=== PATIENT | male | born 1965 | race Caucasian/White ===

== ENCOUNTER 2018-01-01 06:25 | Day surgery (SDC) | payer BC ==
[~2018-01-01] VITALS: Ht 188 cm; Wt 116.1 kg
[~2018-01-01 06:25] MED LIST: LEVEMIR100 UNIT/1 SUB-Q; LIPITOR10 MG PO; LOSARTAN POTASS50 MG PO; METFORMIN HCL1000 MG PO; MULTI VITAMIN1 EACH PO; VENTOLIN HFA18 GM INH
[2018-01-01] MEDS ORDERED: JARDIANCE10 MG PO (06:43)
[2018-01-01] MEDS ORDERED: GLYBURIDE5 MG PO (06:43)
[2018-01-01] MEDS ORDERED: VITAMIN C250 M1 PO (06:44)
--- NOTE | 2018-01-01 08:03 | NUR ---
01/01/18 0803 Brittney Mckeon 8713-PATIENT ARRIVED TO PACU ON 3L NC WEANED TO 2L NC O2 SAT 96% PATIENT AWAKE DROWSY DENIES PAIN OR NAUSEA. RR EVEN. ABDOMEN SOFT. LAYING SUPINE. DOZES BACK TO SLEEP. HAS SLEEP APNEA USES CPAP AT HOME.
--- NOTE | 2018-01-01 12:28 | NUR ---
PT ALERT, ORIENTED ANE SUPPORTED BY HIS JAYDEN. HE IS PLEASANT, HAVING FIRST ROUTINE SCOPE. SEEMED PREPARED, REQUESTED PRAYER. WILL FOLLOW NEEDED
--- NOTE | 2018-01-02 08:11 | OR ---
[facility] [place] [facility] [address], [place] [address] Signed DATE OF OPERATION: 01/01/2018 SURGEON: Reddy Peterson MD COLONOSCOPY REPORT PREOPERATIVE DIAGNOSIS: Screening. POSTOPERATIVE DIAGNOSES: 1. 5 mm polyps in the cecum, mid right colon, 10 cm and 5 cm. 2. Moderate sigmoid diverticulosis. PROCEDURE PERFORMED: Colonoscopy with hot biopsy. ESTIMATED BLOOD LOSS: None. INDICATIONS: Sharan is a 52-year-old gentleman, asked to see me for screening colonoscopy. He said he has no lower GI complaints. There is no family history of colon cancer or polyps. In the office, I gave him a pamphlet on colonoscopy, we looked at that together along with the risks including, but not limited to gas bloating, crampy abdominal pain, bleeding, perforation, requiring surgery, and missed diagnosis. We also discussed the need for IV conscious sedation. He had expressed understanding and wished to proceed. PROCEDURE NOTE: Sharan was taken into our endoscopy suite and placed in the left lateral decubitus position. He was given IV sedation with 125 mcg of fentanyl and 6 mg of Versed. A digital rectal exam was performed and this showed a slightly enlarged and ddeu-kd-ypxbtkitpu indurated prostate gland. No dominant nodules. The adult colonoscope was then introduced and advanced all around into the cecum under direct visualization of the camera without difficulty. We used a little extra sedation and abdominal compression to move the scope into the cecum itself. He had just a little swelling in the right colon, but it was not bad. He has the above-mentioned polyps were removed with the help of hot biopsy forceps. The scope was then slowly withdrawn and we could see that he also has moderate sigmoid diverticulosis, they are moderate in size moderate in number, and scattered about. Once in the rectum, the scope had been retroflexed and there was no additional pathology noted above the anal canal. After Electronically Signed By: REDDY PETERSON MD 01/02/18 0811 PATIENT NAME: SHARAN SHELLEY OPERATIVE REPORT DATE OF : 67 REPORT #: [id number] PHYSICIAN: REDDY PETERSON MD PCP: CARLEE MAHER REPORT IS CONFIDENTIAL AND NOT TO BE RELEASED WITHOUT AUTHORIZATION [facility] [address] [place] [id number] Signed this, the gas was suctioned out and the colonoscope was removed. Sharan tolerated the procedure quite well. RECOMMENDATIONS: I will see Sharan back in my office in 7 to 14 days to review his results. MD JOSH Richmond/SIRISHAL /[id number] cc: NIKA BEJARANO Copies: ~ Electronically Signed By: REDDY PETERSON MD 01/02/18 0811 PATIENT NAME: SHARAN SHELLEY OPERATIVE REPORT DATE OF : 67 REPORT #: [id number] PHYSICIAN: REDDY PETERSON MD PCP: CARLEE MAHER REPORT IS CONFIDENTIAL AND NOT TO BE RELEASED WITHOUT AUTHORIZATION
== END 2018-01-01 08:35 | disposition home or self-care (01) ==
LOC: DS 06:25
PROVIDERS: Colon & Rectal Surgery
PROC: 0DBE8ZZ Excision of Large Intestine, Via Natural or Artificial Opening Endoscopic (ICD-10-PCS; 2018-01-01)
PROC: 0DBP8ZZ Excision of Rectum, Via Natural or Artificial Opening Endoscopic (ICD-10-PCS; 2018-01-01)
PROC: 0DBH8ZZ Excision of Cecum, Via Natural or Artificial Opening Endoscopic (ICD-10-PCS; 2018-01-01)
PROC: 0DBK8ZZ Excision of Ascending Colon, Via Natural or Artificial Opening Endoscopic (ICD-10-PCS; principal; 2018-01-01 06:45)
DX: Z12.11 Encounter for screening for malignant neoplasm of colon (principal); D12.0 Benign neoplasm of cecum; D12.2 Benign neoplasm of ascending colon; D12.8 Benign neoplasm of rectum; D12.6 Benign neoplasm of colon, unspecified; K57.30 Diverticulosis of large intestine without perforation or abscess without bleeding; E78.5 Hyperlipidemia, unspecified; I10 Essential (primary) hypertension; E11.9 Type 2 diabetes mellitus without complications; D69.6 Thrombocytopenia, unspecified; Z79.84 Long term (current) use of oral hypoglycemic drugs; Z79.899 Other long term (current) drug therapy
CPT/HCPCS: 99153; G0500; J2250; J3010; J7120

== ENCOUNTER 2020-04-21 07:50 | Day surgery (SDC) | payer BC ==
[~2020-04-21] VITALS: Ht 188 cm; Wt 113.6 kg
[~2020-04-21 07:50] MED LIST changes: +GLYBURIDE5 MG PO; +JARDIANCE10 MG PO; +OSTERA TABLET1 EACH PO; +VITAMIN C250 M1 PO; +ZINC30 MG PO
--- NOTE | 2020-04-21 12:35 | NUR ---
04/21/20 1235 Ernestina Almanza 1133 PT ARRIVED IN PACU WIDE AWAKE WITH NO C/O'S. BLOOD SUGAR 172 ON ARRIVAL. 1145 3 VIEW XRAY OF R FOOT DONE. AT BEDSIDE TALKING TO PT. 1200 DC INSTRUCTIONS GIVEN. ALL QUESTIONS ANSWERED. BOOT PLACED ON R FOOT. 1210 LEFT VIA W/C. RX GIVEN TO AT CAR.
--- NOTE | 2020-04-22 11:22 | OR ---
[facility] [address] [facility] [place] [place] [address] Signed DATE OF OPERATION: 04/21/2020 SURGEON: Esau Escoto DPM PREOPERATIVE DIAGNOSIS: Hallux valgus, right foot. POSTOPERATIVE DIAGNOSIS: Hallux valgus, right foot. INTERACTIVE ACCOUNT MANAGER SURGEON: Mildred Pittman DPM ANESTHESIA: IV general with local block, right foot. SOLAR INSTALLER TECHNICIAN: Rafa Lima. SPECIMEN TO PATHOLOGY: None. PROCEDURE PERFORMED: Right hallux IPJ fusion. PROCEDURE IN DETAIL: The patient was brought to the operating room and placed on the table in the supine position. Anesthesia Department administered IV sedation after which a local block was given to the right foot using a total of 10 mL 1:1 mixture 0.5% ropivacaine plain and 2% lidocaine plain. The right leg and foot was then prepped and draped in the usual sterile manner and an Esmarch was used for hemostasis. Attention was initially directed to the dorsal right hallux where a transverse linear incision was made over the interphalangeal joint. The incision was approximately 2 cm in length, initially full-thickness through the dermis, then deepened through subcutaneous tissue using careful dissection and cautery as necessary for hemostasis. A transverse tenotomy/capsulotomy was then made to open the interphalangeal joint and soft tissues reflected proximal and distal to fully expose the joint and access the joint to allow joint preparation for fusion. At this time, power instrumentation was used to resect the cartilaginous surfaces to both sides of the joint and to provide angular Electronically Signed By: ESAU ESCOTO DPM 04/22/20 1122 PATIENT NAME: ISADORA SHELLEY OPERATIVE REPORT DATE OF : 67 REPORT #: [id number] PHYSICIAN: ESAU ESCOTO DPM PCP: CARLEE CORTES PA-C REPORT IS CONFIDENTIAL AND NOT TO BE RELEASED WITHOUT AUTHORIZATION [facility] [address] [place], [place] [address] Signed correction for the hallux valgus position. With the alignment and the joint preparation performed, a K-wire was then passed from the joint through the distal phalanx exiting the end of the toe. The K-wire was then reversed and passed into the proximal phalanx to stabilize the position to the toe which was then checked on intraoperative C-arm images. The K-wire was then used for placement of a cannulated screw across the joint to secure the joint position. At this time, the position of the screw was again then checked with intraoperative C-arm images noting good placement to the screw and the osteotomy site was examined. There was good bony apposition to the dorsal aspect of the joint fusion. There was gapping noted to the plantar aspect, but this was deemed adequate. A 2nd point of fixation was then added using an 8 mm bone staple on the lateral side of the joint fusion. At this time, the surgical site was irrigated with copious amounts of normal saline. Soft tissues were then closed, reapproximating deep tissues and tendon using 3-0 Vicryl. Skin then closed using 4-0 nylon monofilament suture. Dressings then applied consisting of Adaptic, Betadine-soaked gauze, dry gauze, Flexicon, and Coban. Prior to placement of the dressings, a postoperative injection was given using 5 mL of a 9:1 mixture, 0.5% ropivacaine plain and dexamethasone phosphate 4 mg/mL. INTRAOPERATIVE COMPLICATIONS: None. ESTIMATED BLOOD LOSS: Less than 5 mL. The patient tolerated the procedure and anesthesia well and left the operating room with vital signs stable and vascular status intact to the right foot as evidenced by hyperemia with removal of the Esmarch. Esau Escoto DPM DFAisha/SIRISHAL /[id number] Electronically Signed By: EASU ESCOTO DPM 04/22/20 1122 PATIENT NAME: ISADORA SHELLEY OPERATIVE REPORT DATE OF : 67 REPORT #: [id number] PHYSICIAN: ESAU ESCOTO DPM PCP: CARLEE CORTES PA-C REPORT IS CONFIDENTIAL AND NOT TO BE RELEASED WITHOUT AUTHORIZATION [address] [place] [address] Signed Copies: ~ Electronically Signed By: ESAU ESCOTO DPM 04/22/20 1122 PATIENT NAME: ISADORA SHELLEY OPERATIVE REPORT DATE OF : 67 REPORT #: [id number] PHYSICIAN: ESAU ESCOTO DPM PCP: CARLEE CORTES PA-C REPORT IS CONFIDENTIAL AND NOT TO BE RELEASED WITHOUT AUTHORIZATION
== END 2020-04-21 12:10 | disposition home or self-care (01) ==
LOC: OPS 07:50 → DS 07:50 → OPS 08:30 → DS 08:30 → OPS 12:10 → DS 04-28 06:45
PROVIDERS: ATTEND Podiatrist Foot Surgery
PROC: 0SGP04Z Fusion of Right Toe Phalangeal Joint with Internal Fixation Device, Open Approach (ICD-10-PCS; principal; 2020-04-21 08:30)
DX: M20.11 Hallux valgus (acquired), right foot (principal); E11.42 Type 2 diabetes mellitus with diabetic polyneuropathy; E11.621 Type 2 diabetes mellitus with foot ulcer; L97.512 Non-pressure chronic ulcer of other part of right foot with fat layer exposed; G47.33 Obstructive sleep apnea (adult) (pediatric)
CPT/HCPCS: 01480; 73620; 73630; C1713; J0690; J1100; J2704; J2795; J7121

== ENCOUNTER 2020-12-23 13:50 | Emergency (ER) | payer BC ==
[~2020-12-23] VITALS: Ht 188 cm; Wt 116.0 kg
[2020-12-23] MEDS ORDERED: BENZONATATE100 MG PO (14:43)
[2020-12-23] MEDS ORDERED: GLIMEPIRIDE4 MG PO (14:44)
[2020-12-23] MEDS ORDERED: ATORVASTATIN CA10 MG PO (14:44)
== END 2020-12-23 16:03 | disposition home or self-care (01) ==
LOC: ED 13:50
DX: U07.1 COVID-19 (principal); E11.9 Type 2 diabetes mellitus without complications; I10 Essential (primary) hypertension; Z79.84 Long term (current) use of oral hypoglycemic drugs; Z79.899 Other long term (current) drug therapy
CPT/HCPCS: 99284

== ENCOUNTER 2020-12-29 12:03 | Emergency (ER) | payer BC ==
[~2020-12-29] VITALS: Ht 188 cm; Wt 115.7 kg
[~2020-12-29 12:03] MED LIST changes: +ATORVASTATIN CA10 MG PO; +BENZONATATE100 MG PO; +GLIMEPIRIDE4 MG PO
--- OUTSIDE RECORDS SUMMARY | 2020-12-29 12:10 | XMS ---
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 Carly VISIT COUNT (12 MO.) 2 [facility] TOTAL 2 NOTE: Visits indicate total known visits. 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
== END 2020-12-29 13:53 | disposition home or self-care (01) ==
LOC: ED 12:03
DX: U07.1 COVID-19 (principal); E11.9 Type 2 diabetes mellitus without complications; Z79.84 Long term (current) use of oral hypoglycemic drugs; Z79.899 Other long term (current) drug therapy
CPT/HCPCS: 99283

== ENCOUNTER 2023-03-07 09:18 | Emergency (ER) | payer OTHER, BC ==
[~2023-03-07] VITALS: Ht 188 cm; Wt 115.9 kg
[2023-03-07 09:48] LABS: BASOPHILS 0.4 % (0-2); EOSINOPHILS 0.8 % (0-6); HEMATOCRIT 42.8 % (35.0-50.0); HEMOGLOBIN 14.9 g/dL (12.0-18.0); LYMPHOCYTES 19.9 % (24-44); MCH 37.4 (27-36); MCHC 34.8 g/dl (30-36); MCV 107.5 fl (81-99); MONOCYTES 6.6 % (0-12); NEUTROPHILS 72.3 % (39-80); PLATELET COUNT 181 K/uL (140-440); RBC 3.99 M/ul (4.3-5.7); RDW 14.9 (10.5-15.0)
[2023-03-07 10:04] LABS: ALBUMIN 4.5 g/dL (3.4-5.0); ALBUMIN/GLOBULIN RATIO 1.67 (1.1-2.4); ALCOHOL, MEDICAL <3 ng/dL (<3); ALKALINE PHOSPHATASE 52 U/L (46-116); ALT (SGPT) 52 U/L (14-59); ANION GAP 17.7 (7-21); AST (SGOT) 42 U/L (15-37); BILIRUBIN, TOTAL 1.2 ng/dL (0.2-1.0); CALCIUM 8.7 mg/dL (8.5-10.1); CARBON DIOXIDE 23 mmol/L (21-32); CHLORIDE 101 mmol/L (98-107); CREATININE, SERUM 0.92 mg/dL (0.70-1.30); GLOMERULAR FILTRATION RATE,EST 98 mL/min (>60); POTASSIUM 4.7 mmol/L (3.5-5.1); PROTEIN, TOTAL 7.2 g/dL (6.4-8.2); UREA NITROGEN 15 mg/dL (7-18)
[2023-03-07 10:24] LABS: ABO A; ANTIBODY SCREEN NEGATIVE; RH NEGATIVE
[2023-03-07] MEDS ORDERED: NAPROSYN500 MG PO (11:15)
[2023-03-07 11:47] VITALS: BP 156/100
== END 2023-03-07 11:45 | disposition home or self-care (01) ==
LOC: ED 09:18
PROVIDERS: Emergency Medicine
DX: S02.31XA Fracture of orbital floor, right side, initial encounter for closed fracture (principal); S00.01XA Abrasion of scalp, initial encounter; S70.11XA Contusion of right thigh, initial encounter; S60.512A Abrasion of left hand, initial encounter; S50.312A Abrasion of left elbow, initial encounter; S80.812A Abrasion, left lower leg, initial encounter; E11.9 Type 2 diabetes mellitus without complications; E78.5 Hyperlipidemia, unspecified; I10 Essential (primary) hypertension; Z79.84 Long term (current) use of oral hypoglycemic drugs; Z79.899 Other long term (current) drug therapy; V86.95XA Unspecified occupant of 3- or 4- wheeled all-terrain vehicle (ATV) injured in nontraffic accident, initial encounter
CPT/HCPCS: 36415; 70450; 70486; 71260; 72125; 73130; 73552; 74177; 80053; 80307; 85025; 86850; 86900; 86901; 90715; G0480; J1885; J7121; Q9967